=== PATIENT | male | born 1945 | race Caucasian/White ===

== ENCOUNTER → 2022-11-19 | Outpatient (RCR) | payer MEDICARE ==
[~2022-11-19] MED LIST: ASPIRIN 81M81 MG/TA2 PO; CRESTOR40 MG PO; LOPRESSOR 225 MG/TAB PO; NITROQUICK0.4 MG SL; NO HOME MEDICATIONS; PLAVIX 75MG TAB75 MG PO
== END | disposition home or self-care (01) ==
LOC: WSST
DX: R13.10 Dysphagia, unspecified (principal)